=== PATIENT | male | born 1995 | race Caucasian/White ===

== ENCOUNTER 2023-05-22 08:32 | Day surgery (SDC) | payer OTHER ==
[2023-05-21 12:58] VITALS: BMI 26.0
[2023-05-22] MEDS ORDERED: fentaNYL 50 mcg/mL 1 mL Vial ONE (10:36)
[2023-05-22] MEDS ORDERED: Midazolam HCl 2 mg/2 ml Vial ONE ×2 (10:37→15:11)
[2023-05-22] MEDS ORDERED: Lidocaine 1% (PF) 30 ML VIAL ONE (10:37)
[2023-05-22] MEDS ORDERED: Ropivacaine 0.2% HCl/PF 20 ML ONE (10:37)
[2023-05-22] MEDS ORDERED: Ropivacaine 0.5% HCl/PF (150 MG/30 ML VIAL) ONE (10:37)
[2023-05-22] MEDS ORDERED: fentaNYL 50 mcg/mL 1 mL Vial SLOW IVP PRN (11:21)
[2023-05-22] MEDS ORDERED: HYDROcodone/Acetaminophen 5/325 mg Tablet PO PRN ×2 (11:30)
[2023-05-22] MEDS ORDERED: traMADol HCl 50 MG TAB PO PRN ×2 (11:30)
[2023-05-22] MEDS ORDERED: Promethazine HCl 25 MG/ML VIAL IM PRN (11:30)
[2023-05-22] MEDS ORDERED: Ondansetron PF 4 MG/2 ML Vial IVP PRN (11:30)
[2023-05-22] MEDS ORDERED: Zolpidem Tartrate 5 MG TAB PO PRN (11:30)
[2023-05-22] MEDS ORDERED: Ketorolac Tromethamine 30 MG (1 mL) VIAL IVP PRN (11:30)
[2023-05-22] MEDS ORDERED: Ropivacaine 0.2% 550 ML 550 ML NERVE BLCK SCH (11:30)
[2023-05-22] MEDS ORDERED: CEFAZOLIN 2 GM VIAL ONE (12:54)
[2023-05-22] MEDS ORDERED: Sodium Chloride 0.9% 100 ML ONE (12:54)
[2023-05-22] MEDS ORDERED: fentaNYL PF 100 MCG/2 ML SYRINGE ONE (12:58)
[2023-05-22] MEDS ORDERED: PROPOFOL 20 ML ONE (12:58)
[2023-05-22] MEDS ORDERED: Ondansetron PF 4 MG/2 ML Vial ONE (13:00)
[2023-05-22] MEDS ORDERED: Ketorolac Tromethamine 30 MG (1 mL) VIAL ONE (13:00)
[2023-05-22] MEDS ORDERED: Lidocaine 1% PF 5 ML VIAL ONE (13:00)
[2023-05-22] MEDS ORDERED: HYDROmorphone 0.5 MG/0.5 ML SYRINGE ONE (15:56)
== END 2023-05-22 17:44 | disposition home or self-care (01) ==
LOC: SDC 08:32
PROVIDERS: ATTEND Orthopaedic Surgery
PROC: 0PSG04Z Reposition Left Humeral Shaft with Internal Fixation Device, Open Approach (ICD-10-PCS; principal; 2023-05-22)
DX: S42.462A Displaced fracture of medial condyle of left humerus, initial encounter for closed fracture (principal); W19.XXXA Unspecified fall, initial encounter; Z87.891 Personal history of nicotine dependence
CPT/HCPCS: A4306; C1713; J1170; J1885; J2001; J2250; J2405; J2704; J2795; J3010; J3490